=== PATIENT | male | born 1970 | race Caucasian/White ===

== ENCOUNTER 2025-04-01 17:12 | Emergency (ER) | payer SELFPAY ==
[~2025-04-01] VITALS: Ht 180.3 cm; Wt 92.0 kg
[2025-04-01 17:15] VITALS: PULSE 85; RESP 16; O2SAT 98
[2025-04-01 17:18] VITALS: BP 125/83; TEMP 36.9; O2SAT 98
[2025-04-01] MEDS ORDERED: METHYLPREDNISOLONE SOD SUCC 125MG/2ML (ACT-O-VIAL) IV STA (17:30)
[2025-04-01] MEDS ORDERED: IPRATROPIUM BROMIDE (0.02%) 0.5MG/2.5ML NEB HHN STA (17:30)
[2025-04-01] MEDS ORDERED: ALBUTEROL (0.083%) 2.5MG/3ML NEB HHN STA (17:30)
== END 2025-04-01 17:50 | disposition left against medical advice (07) ==
LOC: ER 17:12
DX: R07.89 Other chest pain (principal); R05.1 Acute cough; R06.2 Wheezing
CPT/HCPCS: 93005; 94640; 99283; 99284